=== PATIENT | female | born 1975 | race African-American/Black ===

== ENCOUNTER 2018-10-23 21:16 | Emergency (ER) | payer OTHER, MEDICAID ==
[~2018-10-23] VITALS: Ht 152.4 cm; Wt 84.1 kg
[2018-10-23 21:19] VITALS: Ht 152.4 cm; Wt 84.1 kg
[2018-10-23] MEDS ORDERED: ABILIFY10 MG PO (21:21)
[2018-10-23] MEDS ORDERED: NORVASC10 MG PO (21:21)
[2018-10-23] MEDS ORDERED: LAMICTAL100 MG PO (21:21)
[2018-10-23] MEDS ORDERED: DIOVAN160 MG PO (21:21)
[2018-10-23] MEDS ORDERED: HYDROXYZINE HCL10 MG PO (21:22)
[2018-10-23] MEDS ORDERED: HUMIRA (21:22)
[2018-10-23] MEDS ORDERED: DILAUDID4 MG PO (21:41)
[2018-10-23] MEDS ORDERED: PREDNISONE20 MG PO (21:42)
[2018-10-23 22:02] VITALS: BP 127/91
== END 2018-10-23 22:02 | disposition home or self-care (01) ==
LOC: D.ER 21:16
DX: R19.7 Diarrhea, unspecified (principal); Z87.19 Personal history of other diseases of the digestive system